=== PATIENT | female | born 1930 | race Caucasian/White ===

== ENCOUNTER 2017-10-16 00:09 | Inpatient (IN) | payer OTHER ==
[2017-10-16] VITALS (7 sets, daily range): BP systolic 107–134; BP diastolic 45–63
[~2017-10-16] VITALS: Ht 157.5 cm; Wt 98.1 kg
--- NOTE | ~2017-10-16 | HC ---
[facility] [place] [address] CONSULTATION Name: TARIQ HALE Room #: 351-P ADM IN M.R.#: [id number] Admission: 10/16/17 Attend Phys: Maurice Wynn DO Discharge: Date of : [birth year] Report #: [id number] THIS REPORT FOR: //name// CC: Maurice Cabrera [facility] ROOM: 351. SUBJECTIVE: An 87-year-old white female admitted with hypoxemia, coronary artery disease and heart failure. Retrospectively, the patient was seen by me approximately 10 years ago at which time she had hyperthyroidism that was over treated with methimazole while the patient was on lithium and the patient had developed severe hypothyroidism necessitating IV L-thyroxine treatment. There is very limited history since that time. The patient has apparently not been receiving lithium or methimazole in the recent past. It is not clear whether the thyroid function has been evaluated in the past; however, TSH was significantly suppressed upon admission. Otherwise, there is no transfer information or family information available. Regarding the patient's thyroid status, the patient is not on any beta blockade and is not clear when the thyroid was last evaluated. OBJECTIVE: LABORATORY DATA: TSH 0.019. Free T4 is pending. Whitten is less than 0.5 or essentially undetectable. PHYSICAL EXAMINATION: Frail 87-year-old white female who responds minimally to verbal complaints. Heart rate 100 and regular. The patient is afebrile, blood pressure 120/45. Skin warm and moist with decreased turgor. PERRL. No ophthalmopathy. Neck shows diffuse firm multinodular thyroid, which moves well with deglutition. Deep tendon reflexes are 2+ and equal bilaterally and the remainder of the exam appears euthyroid. However, the patient's cooperation is limited. ASSESSMENT: Hyperthyroidism, which progressed to post-treatment hypothyroidism years ago when the patient was on both methimazole and lithium. Recent medication history is not available; however, it is possible that the patient's hyperthyroidism has become unmasked with discontinuation of both methimazole and lithium in the past. Whitten induced hyperthyroidism on an autoimmune basis has been reported, but it is vanishingly rare. PLAN: Will await pending free T4 and most likely initiate methimazole at high dosage in an effort to suppress what is most likely an autonomous nodule. [address] [address] CONSULTATION Name: TARIQ HALE Room #: 351-P [facility] IN M.R.#: [id number] Admission: 10/16/17 Attend Phys: Maurice Wynn DO Discharge: Date of : [birth year] Report #: [id number] Thank you very much for this consultation. I will continue to follow the patient with you for evaluation and management of thyroid disease. <ELECTRONICALLY SIGNED> By: Justin Wong MD 10/16/17 1410 1253 1331 Justin Wong MD /nt
--- NOTE | ~2017-10-16 | EKG ---
[place] [address] [facility] [place] [address] ELECTROCARDIOGRAM REPORT Name: TARIQ HALE Room #: 351-P ADM IN M.R.#: [id number] Admission: 10/16/17 Attend Phys: Mauirce Wynn DO Discharge: Date of : [birth year] Report #: [id number] THIS REPORT FOR: //name// [facility] ED Test Date: 2017-10-16 Test Time: 00:10:31 Pat Name: TARIQ HALE Department: Room: [facility] Gender: F Manager Lan: MZPHOENIX : 1930 Requested By: Sanchez Cole Order Number: [id number] MD: Kam Murphy Measurements Intervals [place] Rate: 96 P: 92 MD: 204 QRS: -20 QRSD: 98 T: 129 QT: 363 QTc: 459 Interpretive Statements Sinus rhythm Probable left atrial enlargement Borderline left axis deviation Anterior infarct, old Repol abnrm suggests ischemia, lateral leads Compared to ECG 09/09/2015 21:00:32 Intraventricular conduction delay no longer present T-wave abnormality no longer present Possible ischemia still present Electronically Signed On 10-16-2017 10:36:13 CDT by Kam Murphy [email or web address] <ELECTRONICALLY SIGNED> By: Kam Murphy MD 10/16/17 1036 0010 0010 Kam Murphy MD /EPI
--- NOTE | ~2017-10-16 | 2DMMODE ---
[facility] [address] [facility] [place] [address] 2 D/M-MODE ECHOCARDIOGRAM Name: ALEXIATARIQ Room #: 351-P [facility] IN M.R.#: [id number] Admission: 10/16/17 Attend Phys: David Rasheed, Discharge: Date of : [birth year] Date of Service: 10/18/17 1016 Report #: [id number] THIS REPORT FOR: //name// APPROVED REPORT Study performed: 10/18/2017 08:57:43 EXAM: Comprehensive 2D, Doppler, and color-flow Echocardiogram Patient Location: Echo lab Room #: 351 Status: routine BSA: 1.98 HR: 94 bpm BP: 148/71 mmHg Other Information Study Quality: Good Technically limited study due to uncooperative patient/patient mental status. Indications Dyspnea Hypertension/HDD 2D Dimensions RVDd: 32.94 mm LVEF(%): 72.34 (>50%) IVSd: 11.86 (7-11mm) LVOT Diam: 17.58 (18-24mm) LVDd: 34.54 mm PWd: 12.89 (7-11mm) Ascending Ao: 31.13 (22-36mm) LVDs: 20.54 (25-40mm) Aortic Root: 30.80 mm IVC: 19.00 mm Dove's LVEF: 72.34 % Volumes Left Atrial Volume (Systole) Single Plane 4CH: 22.98 mL Single Plane 2CH: 41.24 mL LA ESV Index: 17.00 mL/m2 Aortic Valve AoV Peak Maury.: 1.66 m/s AO Peak Gr.: 10.99 mmHg LVOT Max P.54 mmHg LVOT Max V: 1.28 m/s BIB Vmax: 1.87 cm2 Mitral Valve [facility] [place] [address] 2 D/M-MODE ECHOCARDIOGRAM Name: TARIQ HALE Room #: 351-P [facility] IN M.R.#: [id number] Admission: 10/16/17 Attend Phys: David Rasheed, Discharge: Date of : [birth year] Date of Service: 10/18/17 1016 Report #: [id number] E/A Ratio: 0.7 MV Decel. Time: 245.05 ms MV E Max Maury.: 1.02 m/s MV A Maury.: 1.52 m/s MV PHT: 71.06 ms IVRT: 76.12 ms Pulmonary Valve PV Peak Maury.: 1.25 m/s PV Peak Gr.: 6.26 mmHg Pulmonary Vein P Vein S: 0.96 m/s P Vein A: 0.39 m/s P Vein D: 0.74 m/s P Vein A Dur.: 117.6 msec P Vein S/D Ratio: 1.30 Tricuspid Valve TR Peak Maury.: 3.23 m/s RAP Estimate: 5.00 mmHg TR Peak Gr.: 41.85 mmHg PA Pressure: 47.00 mmHg Left Ventricle The left ventricle is normal size. There is normal LV segmental wall motion. Mild concentric left ventricular hypertrophy. The left ventricular systolic function is normal. The left ventricular ejection fraction is within the normal range. LVEF is 65-70%. Mild diastolic dysfunction is present (impaired relaxation pattern). Right Ventricle The right ventricle is normal size. The right ventricular systolic function is normal. Atria The left atrium size is normal. The right atrium size is normal. Aortic Valve The aortic valve is normal in structure. No aortic regurgitation is present. There is no aortic valvular stenosis. Mitral Valve Minimal mitral annular calcification There is no mitral valve regurgitation noted. No evidence of mitral valve stenosis. Tricuspid Valve The tricuspid valve is normal in structure. Mild tricuspid [facility] [address] [place] [address] 2 D/M-MODE ECHOCARDIOGRAM Name: TARIQ HALE Room #: 351-P [facility] IN [facility]#: [id number] Admission: 10/16/17 Attend Phys: David Rasheed, Discharge: Date of : [birth year] Date of Service: 10/18/17 1016 Report #: [id number] regurgitation. PAP is estimated at 47 mmHg. Pulmonic Valve The pulmonary valve is normal in structure. There is no pulmonic valvular regurgitation. Great Vessels The aortic root is normal in size. IVC is normal in size and collapses >50% with inspiration. Pericardium There is no pericardial effusion. <Conclusion> The left ventricular systolic function is normal. Mild concentric left ventricular hypertrophy. There is normal LV segmental wall motion. LVEF 65-70%. Mild diastolic dysfunction The aortic valve is normal in structure. No aortic regurgitation or stenosis Minimal mitral annular calcification. No mitral valve regurgitation noted. Mild tricuspid regurgitation. Pulmonary artery pressure estimated at 47 mmHg. There is no pericardial effusion. <ELECTRONICALLY SIGNED> By: Pan Yin MD, FACC 10/18/17 1016 1016 1016 Pan Yin MD, FACC /INF
[~2017-10-16 00:09] MED LIST: ASPIR 8181 MG PO; AUGMENTIN 875875 MG PO; BIOTENE1000 ML MM; BIOTENE1000 ML PO; CALCIUM 500 +1 EAC5 PO; CLARITIN10 M3 PO; CLARITIN10 MG PO; CLONAZEPAM 0.50.5 M1 PO; CLONAZEPAM0.5 MG PO; COLACE100 MG PO; DUONEB 2.5-0.5 M3 ML; FAMOTIDINE 20 M20 MG PO; FOSAMAX 70 MG T70 MG PO; GEODON 80 MG CA80 MG PO; GEODON20 MG PO; HYDRALAZINE 2525 M1 PO; HYDRALAZINE 2525 MG PO; LAMICTAL XR100 MG PO; LAMICTAL100 MG PO; LITHIUM CARBON300 M3 PO; LITHIUM CARBON300 M6 PO; MILK OF MA2400 MG/10 PO; NORVASC 2.5 MG2.5 MG PO; PAXIL10 MG; PROAIR HFA8.5 GM INH; REMERON15 MG PO; REMERON45 MG PO; ROBITUSSIN10 MG MM; SENNA S TABLET1 EACH PO; SERTRALINE HCL50 MG PO; SYNTHROID25 MCG PO; TYLENOL325 MG PO; ZOLOFT50 MG PO
[2017-10-16] MEDS ORDERED: NORVASC5 MG PO (00:20)
[2017-10-16] MEDS ORDERED: BIOTENE1000 ML PO (00:21)
[2017-10-16] MEDS ORDERED: REMERON15 MG PO (00:24)
[2017-10-16] MEDS ORDERED: GLYCOLAX119 GM PO (00:24)
[2017-10-16] MEDS ORDERED: NAMENDA XR28 MG PO (00:25)
[2017-10-16] MEDS ORDERED: PROAIR RESPICL90 MCG INH (00:25)
[2017-10-16] MEDS ORDERED: SENNA-LAX8.6 MG PO (00:26)
[2017-10-16] MEDS ORDERED: SERTRALINE HCL50 MG PO (00:27)
[2017-10-16] MEDS ORDERED: SINGULAIR 10 MG10 M1 PO (00:27)
[2017-10-16 00:31] LABS: ABSOLUTE NEUTROPHILS 3.2 thou/uL (1.4-8.2); BASOPHILS 0.5 % (0.0-2.0); HEMATOCRIT 30.8 % (37.0-47.0); HEMOGLOBIN 10.4 gm/dL (12.0-15.0); LYMPHOCYTES 15.1 % (24.0-44.0); MCH 32.1 pg (26.0-34.0); MCHC 33.9 g/dL (28.0-37.0); MCV 94.6 fL (80.0-100.0); MONOCYTES 11.5 % (1.0-8.0); PLATELET COUNT 156 thou/uL (150-400); POLYS 70.9 % (36.0-66.0); RBC 3.25 mil/uL (4.20-5.00); RDW 13.1 % (10.5-14.5); WBC 4.5 thou/uL (4.0-11.0)
[2017-10-16 00:38] LABS: BE(vivo) 1.1 mmol/L (-2 to +3); HCO3 25.5 mmol/L (22.0-26.0); PCO2 39.7 mmHg (35.0-45.0); PO2 56.8 mmHg (80.0-100.0); pH 7.425 (7.360-7.450); sO2 90.3 % (92.0-98.0)
[2017-10-16 00:40] LABS: ANION GAP 7 mmol/L (7-16); BUN 28 mg/dL (7-18); CALCIUM 9.7 mg/dL (8.5-10.1); CHLORIDE 107 mmol/L (98-107); CO2 27 mmol/L (21-32); CREATININE 1.8 mg/dL (0.6-1.0); POTASSIUM 3.6 mmol/L (3.5-5.1); SODIUM 141 mmol/L (136-145)
[2017-10-16 00:45] LABS: APTT 33.7 Seconds (24.5-32.8); INR 1.1; PROTIME 10.8 Seconds (9.3-11.4)
[2017-10-16 00:48] LABS: ALBUMIN 3.4 g/dL (3.4-5.0); GLUCOSE 123 mg/dL (74-106); MAGNESIUM 2.5 mg/dL (1.8-2.4); SGOT 21 U/L (15-37); SGPT 20 U/L (30-65); TOTAL BILIRUBIN 0.3 mg/dL (<0.1-1.0); TOTAL PROTEIN 7.2 g/dL (6.4-8.2); TROPONIN-I < 0.04 ng/mL (<0.06)
[2017-10-16] MEDS ORDERED: FLONASE 0.05%50 MCG NASAL (02:16)
[2017-10-16] MEDS ORDERED: GEODON40 MG PO (02:17)
[2017-10-17 03:27] VITALS: BP 105/47
[2017-10-17 06:33] LABS: HEMATOCRIT 27.6 % (37.0-47.0); HEMOGLOBIN 9.5 gm/dL (12.0-15.0); MCH 32.5 pg (26.0-34.0); MCHC 34.4 g/dL (28.0-37.0); MCV 94.6 fL (80.0-100.0); RBC 2.92 mil/uL (4.20-5.00); RDW 13.2 % (10.5-14.5); WBC 7.3 thou/uL (4.0-11.0)
[2017-10-17 06:38] LABS: CREATININE 2.1 mg/dL (0.6-1.0); MAGNESIUM 2.6 mg/dL (1.8-2.4); POTASSIUM 4.1 mmol/L (3.5-5.1)
[2017-10-17 07:35] VITALS: BP 121/49
[2017-10-17 13:18] VITALS: BP 108/55
[2017-10-17 15:30] VITALS: BP 114/51
[2017-10-17 19:51] VITALS: BP 119/54
[2017-10-18 03:28] VITALS: BP 128/61
[2017-10-18 05:43] LABS: CALCIUM 9.2 mg/dL (8.5-10.1); CREATININE 1.8 mg/dL (0.6-1.0); MAGNESIUM 2.6 mg/dL (1.8-2.4); POTASSIUM 3.9 mmol/L (3.5-5.1)
[2017-10-18 07:51] VITALS: BP 148/71
[2017-10-18 11:49] VITALS: BP 133/70
[2017-10-18] MEDS ORDERED: METHIMAZOLE5 MG PO (12:27)
[2017-10-18] MEDS ORDERED: RISPERDAL 1 MG T1 MG PO (12:27)
== END 2017-10-18 15:57 | DRG 189 ==
LOC: ER 00:09 → EROBS 01:31 → 3W 01:31
PROVIDERS: Emergency Medicine; Internal Medicine; Nurse Practitioner Family
PROC: B24BZZ4 Ultrasonography of Heart with Aorta, Transesophageal (ICD-10-PCS; principal; 2017-10-18)
DX: J96.01 Acute respiratory failure with hypoxia (principal); G93.40 Encephalopathy, unspecified; I13.0 Hypertensive heart and chronic kidney disease with heart failure and stage 1 through stage 4 chronic kidney disease, or unspecified chronic kidney disease; J45.901 Unspecified asthma with (acute) exacerbation; F31.9 Bipolar disorder, unspecified; E03.9 Hypothyroidism, unspecified; N18.9 Chronic kidney disease, unspecified; I50.9 Heart failure, unspecified; E05.90 Thyrotoxicosis, unspecified without thyrotoxic crisis or storm; K21.9 Gastro-esophageal reflux disease without esophagitis; D63.1 Anemia in chronic kidney disease; I25.10 Atherosclerotic heart disease of native coronary artery without angina pectoris; F41.9 Anxiety disorder, unspecified; F03.90 Unspecified dementia, unspecified severity, without behavioral disturbance, psychotic disturbance, mood disturbance, and anxiety; M81.0 Age-related osteoporosis without current pathological fracture; Z87.891 Personal history of nicotine dependence; Z99.81 Dependence on supplemental oxygen; Z79.51 Long term (current) use of inhaled steroids; Z79.82 Long term (current) use of aspirin; Z79.899 Other long term (current) drug therapy
CPT/HCPCS: 10879

== ENCOUNTER 2017-11-18 11:04 | Inpatient (IN) | payer OTHER ==
[~2017-11-18] VITALS: Ht 157.5 cm; Wt 49.5 kg
--- NOTE | ~2017-11-18 | EKG ---
[address] [address] ELECTROCARDIOGRAM REPORT Name: TARIQ HALE Room #: 359-P [facility] IN ..#: [id number] Admission: 11/18/17 Attend Phys: Rush Alcala MD Discharge: Date of : [birth year] Report #: [id number] THIS REPORT FOR: //name// [facility] ED Test Date: 2017-11-18 Test Time: 12:14:01 Pat Name: TARIQ HALE Department: Room: Gender: F Director Of Planning: Devyn KATHLEEN : 1930 Requested By: Jose Tejeda Order Number: [id number] MD: Luis Manuel Tompkins Measurements Intervals [place] Rate: 71 P: 82 VT: 197 QRS: 18 QRSD: 111 T: 87 QT: 428 QTc: 466 Interpretive Statements Sinus rhythm Borderline low voltage, extremity leads Anteroseptal infarct, old Compared to ECG 10/16/2017 00:10:31 Early repolarization no longer present Possible ischemia no longer present Myocardial infarct finding still present Electronically Signed On 11-18-2017 16:22:54 CDT by Luis Manuel Tompkins [email or web address] <ELECTRONICALLY SIGNED> By: Luis Manuel Tompkins MD 11/18/17 1622 1214 1214 Luis Manuel Tompkins MD /EPI
--- NOTE | ~2017-11-18 | H ---
[facility] [place] [address] HISTORY AND PHYSICAL Name: TARIQ HALE Room #: 359-P ADM IN M.R.#: [id number] Admission: 11/18/17 Attend Phys: Rush Alcala MD Discharge: Date of : [birth year] Report #: [id number] THIS REPORT FOR: //name// CC: Joviozzie Paulina Alcala DATE OF SERVICE: 11/18/2017 CHIEF COMPLAINT: Mental status change, lethargy. HISTORY OF PRESENT ILLNESS: Information was obtained by Emergency Room staff from the senior care staff that indicates over the last week, she has become progressively less active and more lethargic and not eating or drinking as much as usual. Ordinarily, she ambulates with a walker, but has not been doing any of this for the last several days. She has had several admissions for mental status changes in the last several years, unfortunately she returns to normal with the administration of intravenous fluids, no stroke, no serious illness has been found. She was most recently admitted 10/16/2017 and was felt to be having hypoxia from a flare of asthma or COPD. PAST MEDICAL HISTORY: Noted for dementia, schizophrenia, bipolar disease and depression. She was on lithium off and on several times in the past, and most recently her lithium was discontinued on 10/16/2017 at the time she was admitted. There was a concerned that the lithium was interfering with her thyroid function. She was placed on risperidone by Dr. Michelle Benitez, psychiatry quantitative consultant, because for oral Geodon was not available at this facility. Apparently, she responded relatively well to the Risperdal, until perhaps just recently. CT scans back 10-year or so massively enlarged multiple nodular goiter, wider is not quite as prominent on the current studies. She was seen in Endocrine consultation by Dr. Justin Wong last month and he felt she had an autonomously functioning nodule of her multinodular goiter. He put her on methimazole, how- ever today it appears, at first blush, that there has been no significant benefit because her TSH is still suppressed like it was back in September. She has COPD by air trapping pattern seen on 2 ventilation perfusion studies. She is minimally symptomatic. She has been actively treated for bronchospasm and asthma in the past. She has a history of coronary artery disease based on coronary artery calcifications on CT scanning. Asymptomatic gallstones disease based on the lack of symptoms along with an imaging study showing the presence of gallstones. She has osteoporosis. 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 She has a history of an elevated D-dimer without having a pulmonary embolus. She has hypertension, compression fracture at L1 diagnosed recently, and hypertension. An echocardiogram last month showed mild LVH with an ejection fraction of 65%-70% with mild diastolic dysfunction and pulmonary artery pressure calculated at 47 mmHg. Note is made that her valvular structure, geometry, and function was all within normal limits. CURRENT MEDICATION LIST: Includes oxygen by 2 liters of nasal cannula on a p.r.n. basis to keep oxygen saturations over 90%. Amlodipine 5 mg daily for hypertension, aspirin 81 mg daily, Biotene dry mouth liquid mouthwash 0.5 mL 3 times a day, famotidine 20 mg in the morning for GERD, fluticasone proprionate 1 spray in each nostril at bedtime for allergies, MiraLax 17 grams once a day as needed for constipation, hydralazine 100 mg every 8 hours for hypertension orally, ipratropium/albuterol every 4 hours as needed for shortness of breath or wheezing via nebulizer, clonazepam 1 mg twice daily for anxiety, loratadine 1 every other day for allergies, methimazole 5 mg 2 tablets twice daily for hyperthyroidism, mirtazapine 30 mg 1 at bedtime, Namenda XR 24 mg/28 mg capsules once in the morning for dementia, Os-Armani 500/200 vitamin D 1 tablet twice daily, risperidone 1 mg tablet 2 at bedtime as needed for depression, senna lax tablets 2 tablets by mouth once daily as needed for constipation, sertraline 100 mg 2 tablets by mouth once daily for depression, Singulair 10 mg 1 daily for asthma, Tylenol as needed, Ventolin HFA 2 puffs orally 3 times daily as needed for asthma, vitamin D 1000 units by mouth once daily. ALLERGIES: None listed. She does not have any known allergies. OBJECTIVE: GENERAL: Shows a small lady who is easily awake and alert, but her answers to questions quite sparse. HEENT: Unremarkable. Oral mucosa is dry. Her tongue is okay. Oropharynx is dry. NECK: There is a diffusely enlarged throyid gland. No bruits or masses. CARDIOVASCULAR: The heart tones are normal and the rhystm is regular. NEUROLOGIC: She is awake, alert and oriented. The neck is negative with palpable enlargement. LUNGS: Clear. ABDOMEN: soft nontender no organomegaly nor masses Extremities: no leg edema. Neuro: no focal abnormalities ASSESSMENT: 1. Toxic encephalopathy. 2. Mental status and activity change. [address] [place] [address] HISTORY AND PHYSICAL Name: TARIQ HALE Room #: 359-P ADM IN M.R.#: [id number] Admission: 11/18/17 Attend Phys: Rush Alcala MD Discharge: Date of : [birth year] Report #: [id number] 3. A large multinodular goiter with an autonomous functioning nodule. apathetic hyperthyroidism. 4. Dehydration 5. Chronic elevation of D Dimer 6. Dementia 7. Schizophrenia 8. Bipolar 9. COPD - using O2 as needed 10 HTN 11. Other problems as in the body of the report above. Plan: IV fluids, resume home meds in stages as appropriate, agapito Wong for adjustment of medications for hyperthyroidism By: 0113 0239 Rush Alcala MD /nt
--- NOTE | ~2017-11-18 | HC ---
[facility] [place] [address] CONSULTATION Name: TARIQ HALE Room #: 359-P ADM IN M.R.#: [id number] Admission: 11/18/17 Attend Phys: Rush Alcala MD Discharge: Date of : [birth year] Report #: [id number] THIS REPORT FOR: //name// CC: Deborah Alcala ENDOCRINE CONSULTATION LOCATION: [facility], room 359, bed 1. The patient of Dr. Alcala. SUBJECTIVE: One of several recent admissions for this 87-year-old white female with a variety of medical problems including hyperthyroidism which has been present for a significant length of time due to large toxic multinodular goiter. The patient was seen approximately 1-2 months ago at which time her hyperthyroidism was treated with methimazole and she has been on 10 mg of methimazole b.i.d. since that time. It appears that the patient has been receiving that medication at the [facility], but there is no clear proof to that effect. The patient has been on that medication since her recent admission. Clinical status of nonthyroid parameters is as mentioned above. Since admission, the patient has been noted to have a slight increase in thyroid function studies with a free T4 going from a prior value of 1.3 to a current value of 1.7 and a TSH decreasing from 0.019-0.013. Otherwise, there is no interval history available at this time. OBJECTIVE: LABORATORY DATA: As above. PHYSICAL EXAMINATION: GENERAL: A thin 87-year-old white female in no acute distress. VITAL SIGNS: Heart rate 100 and regular. The patient is afebrile. Blood pressure 142/74. SKIN: Thin, warm and moist without abnormality. NEUROLOGIC: The patient is unable to respond in a lucent fashion to any medical questioning and is unable to give any pertinent medical information. Deep tendon reflexes are 2+ and equal bilaterally. There is no ophthalmopathy. NECK: The thyroid continues to be firm and diffusely enlarged, unchanged from 1-2 months ago. The remainder of the exam is euthyroid. ASSESSMENT: Large toxic multinodular goiter with hyperthyroidism, now on methimazole therapy. The patient has not been on methimazole for a sufficient length of time to positively impact thyroid function studies. Methimazole will only interfere with new thyroid hormone production, but the patient has a large reservoir previously formed and stored thyroid hormone, which will need to be slowly metabolized before thyroid function studies can return toward normal. [address] [address] CONSULTATION Name: TARIQ HALE Room #: 359-P [facility] IN [facility]#: [id number] Admission: 11/18/17 Attend Phys: Rush Alcala MD Discharge: Date of : [birth year] Report #: [id number] The slight change in thyroid function studies on this current admission is not a significant change from prior values given the potential range of error of the testing. PLAN: Will attempt to ensure that the patient was receiving methimazole since prior dismissal and will continue current dosage of methimazole for the present, repeating thyroid function tests at intervals as needed. Thank you very much for this consultation. I will continue to follow the patient with you for management of hyperthyroidism. <ELECTRONICALLY SIGNED> By: Justin Wong MD 11/20/17 1704 1336 15 Justin Wong MD /nt
[~2017-11-18 11:04] MED LIST changes: +FLONASE 0.05%50 MCG NASAL; +GEODON40 MG PO; +GLYCOLAX119 GM PO; +METHIMAZOLE5 MG PO; +NAMENDA XR28 MG PO; +NORVASC5 MG PO; +PROAIR RESPICL90 MCG INH; +RISPERDAL 1 MG T1 MG PO; +SENNA-LAX8.6 MG PO; +SINGULAIR 10 MG10 M1 PO
[2017-11-18 11:05] VITALS: BP 107/68
[2017-11-18 11:15] LABS: ABSOLUTE NEUTROPHILS 3.1 thou/uL (1.4-8.2); BASOPHILS 0.4 % (0.0-2.0); HEMATOCRIT 35.4 % (37.0-47.0); HEMOGLOBIN 11.7 gm/dL (12.0-15.0); LYMPHOCYTES 11.9 % (24.0-44.0); MCH 30.8 pg (26.0-34.0); MCHC 33.1 g/dL (28.0-37.0); MCV 93.2 fL (80.0-100.0); MONOCYTES 11.4 % (1.0-8.0); PLATELET COUNT 222 thou/uL (150-400); POLYS 75.3 % (36.0-66.0); RDW 12.4 % (10.5-14.5); WBC 4.2 thou/uL (4.0-11.0)
[2017-11-18 11:24] LABS: CALCIUM 9.5 mg/dL (8.5-10.1); CREATININE 1.5 mg/dL (0.6-1.0)
[2017-11-18 11:34] LABS: ALBUMIN 3.2 g/dL (3.4-5.0); TOTAL BILIRUBIN 0.5 mg/dL (<0.1-1.0); TOTAL PROTEIN 7.1 g/dL (6.4-8.2)
[2017-11-18 11:43] LABS: URINE BILIRUBIN NEGATIVE (Negative); URINE BLOOD NEGATIVE (Negative); URINE CLARITY CLEAR; URINE COLOR YELLOW; URINE GLUCOSE-RANDOM* NEGATIVE (Negative); URINE KETONES 1+ (Negative); URINE LEUKOCYTES-REFLEX NEGATIVE (Negative); URINE NITRITE-REFLEX NEGATIVE (Negative); URINE PROTEIN (DIPSTICK) NEGATIVE (Negative); URINE SPECIFIC GRAVITY 1.015 (1.005-1.035); URINE UROBILINOGEN 0.2 E.U./dl (0.2-1.0)
[2017-11-18 12:41] LABS: BE(vivo) -1.9 mmol/L (-2 to +3); HCO3 19.5 mmol/L (22.0-26.0); PO2 83.2 mmHg (80.0-100.0); pH 7.527 (7.360-7.450); sO2 97.3 % (92.0-98.0)
[2017-11-18 13:23] VITALS: BP 145/43
[2017-11-18] MEDS ORDERED: CLONAZEPAM 1 MG1 M1 PO (13:30)
[2017-11-18 13:50] VITALS: BP 145/43
[2017-11-18 15:06] VITALS: BP 166/62
[2017-11-18 15:38] VITALS: BP 175/69
[2017-11-18 19:33] VITALS: BP 132/58
[2017-11-19 03:40] VITALS: BP 183/78
[2017-11-19 05:44] VITALS: BP 166/56
[2017-11-19 06:22] LABS: ABSOLUTE NEUTROPHILS 3.2 thou/uL (1.4-8.2); BASOPHILS 0.8 % (0.0-2.0); HEMATOCRIT 33.1 % (37.0-47.0); HEMOGLOBIN 11.1 gm/dL (12.0-15.0); LYMPHOCYTES 12.6 % (24.0-44.0); MCH 31.1 pg (26.0-34.0); MCHC 33.5 g/dL (28.0-37.0); MCV 93.1 fL (80.0-100.0); PLATELET COUNT 206 thou/uL (150-400); POLYS 72.6 % (36.0-66.0); RBC 3.56 mil/uL (4.20-5.00); RDW 12.1 % (10.5-14.5); WBC 4.4 thou/uL (4.0-11.0)
[2017-11-19 06:37] LABS: ALBUMIN 2.9 g/dL (3.4-5.0); CALCIUM 8.9 mg/dL (8.5-10.1); CREATININE 1.4 mg/dL (0.6-1.0); POTASSIUM 3.4 mmol/L (3.5-5.1); TOTAL BILIRUBIN 0.4 mg/dL (<0.1-1.0); TOTAL PROTEIN 6.6 g/dL (6.4-8.2)
[2017-11-19 08:07] VITALS: BP 178/76
[2017-11-19 12:32] VITALS: BP 142/74
[2017-11-19 15:15] VITALS: BP 124/60
[2017-11-19 19:40] VITALS: BP 157/72
[2017-11-20 04:44] VITALS: BP 137/69
[2017-11-20 04:44] LABS: ALBUMIN 2.8 g/dL (3.4-5.0); CALCIUM 8.6 mg/dL (8.5-10.1); CREATININE 1.2 mg/dL (0.6-1.0); TOTAL BILIRUBIN 0.4 mg/dL (<0.1-1.0); TOTAL PROTEIN 6.2 g/dL (6.4-8.2)
[2017-11-20 04:49] LABS: POTASSIUM 4.4 mmol/L (3.5-5.1)
[2017-11-20 07:48] VITALS: BP 101/41
[2017-11-20 11:37] VITALS: BP 122/54
[2017-11-20 15:12] VITALS: BP 128/58
[2017-11-20 19:33] VITALS: BP 145/61
[2017-11-21 04:30] VITALS: BP 160/67
[2017-11-21 05:00] LABS: ALBUMIN 2.6 g/dL (3.4-5.0); CALCIUM 8.6 mg/dL (8.5-10.1); CREATININE 1.2 mg/dL (0.6-1.0); POTASSIUM 4.3 mmol/L (3.5-5.1); TOTAL BILIRUBIN 0.3 mg/dL (<0.1-1.0); TOTAL PROTEIN 6.1 g/dL (6.4-8.2)
[2017-11-21 07:19] VITALS: BP 113/49
[2017-11-21 10:57] VITALS: BP 103/47
[2017-11-21 15:27] VITALS: BP 111/54
[2017-11-21 20:00] VITALS: BP 119/59
[2017-11-22 04:00] VITALS: BP 124/55
[2017-11-22 07:54] VITALS: BP 105/50
[2017-11-22] MEDS ORDERED: REMERON15 MG PO (08:11)
[2017-11-22] MEDS ORDERED: CLONAZEPAM 0.50.5 M1 PO (08:11)
[2017-11-22] MEDS ORDERED: ZOLOFT100 MG PO (08:11)
== END 2017-11-22 11:32 | DRG 91 ==
LOC: ER 11:04 → 3W 12:47 → EROBS 12:47 → 3W 15:08
PROVIDERS: Emergency Medicine; Internal Medicine
DX: G92 Toxic encephalopathy (principal); E43 Unspecified severe protein-calorie malnutrition; N18.4 Chronic kidney disease, stage 4 (severe); E05.20 Thyrotoxicosis with toxic multinodular goiter without thyrotoxic crisis or storm; F31.9 Bipolar disorder, unspecified; K21.9 Gastro-esophageal reflux disease without esophagitis; F41.9 Anxiety disorder, unspecified; E03.9 Hypothyroidism, unspecified; F20.9 Schizophrenia, unspecified; J44.9 Chronic obstructive pulmonary disease, unspecified; I25.10 Atherosclerotic heart disease of native coronary artery without angina pectoris; D72.810 Lymphocytopenia; E86.0 Dehydration; I12.9 Hypertensive chronic kidney disease with stage 1 through stage 4 chronic kidney disease, or unspecified chronic kidney disease; G30.9 Alzheimer's disease, unspecified; F02.80 Dementia in other diseases classified elsewhere, unspecified severity, without behavioral disturbance, psychotic disturbance, mood disturbance, and anxiety; M81.0 Age-related osteoporosis without current pathological fracture; Z87.891 Personal history of nicotine dependence; Z68.20 Body mass index [BMI] 20.0-20.9, adult; Z79.51 Long term (current) use of inhaled steroids; Z79.82 Long term (current) use of aspirin; Z79.899 Other long term (current) drug therapy
CPT/HCPCS: 10879